=== PATIENT | female | born 1970 | race Caucasian/White ===

== ENCOUNTER 2021-12-25 18:43 | Emergency (ER) | payer OTHER, SELFPAY ==
--- NOTE | ~2021-12-25 | US_ITS ---
EXAMINATION: US VENOUS WITH DOPPLER UPPER EXTREMITY, RIGHT CLINICAL INFORMATION: Ecchymosis and pain COMPARISON: None TECHNIQUE: Ultrasound of the upper extremity is performed using compression sonography and color and pulse Doppler flow with assessment of augmentation of flow. There is also imaging and Doppler assessment of the jugular and subclavian veins. Spectral analysis with color-flow imaging is performed. FINDINGS: Respiratory variation, normal compression, and augmented flow are noted throughout the upper extremity including the axillary, brachial, cubital, and radial and ulnar veins. There is normal flow in the internal jugular and subclavian veins. There is no visible deep or superficial thrombophlebitis. If the patient's symptoms progress, a followup ultrasound in 5 -7 days might be of value to exclude proximal propagation from a nonvisualized distal arm vein. US/US venous duplex UE RT IMPRESSION: No DVT demonstrated in the right upper extremity
[2021-12-25 18:48] VITALS: BP 138/73; PULSE 92; RESP 16; TEMP 37.3; O2SAT 98
[2021-12-25 19:48] VITALS: BMI 23.9
--- NOTE | 2021-12-25 20:01 | ED.EXTPRO ---
HPI - Extremity Problem General Chief complaint: Extremity Injury, Upper Stated complaint: R Arm Injury W/C 12/25/21 Time Seen by Provider: 12/25/21 19:55 Source: patient Mode of arrival: ambulatory History of Present Illness HPI Narrative: 51-year-old female with no significant past medical history presenting to the ED complaining in a palmar aspect of distal right forearm/wrist spontaneous swelling/ecchymosis s/p having hands in ice box at work. Denies trauma/injury. Reports mild pain. Patient applied compression dressing and ice [employer]. Denies SOB, taking anticoagulation or prior DVT MD Complaint: extremity pain and extremity swelling Onset (ago): hour(s) Related Data Allergies Allergy/AdvReac Type Severity Reaction Status Date / Time sumatriptan [From IMITREX] Allergy Intermediate NUMBNESS Verified 12/25/21 19:47 amoxicillin [AMOXICILLIN] Allergy Mild MIGRAINE Verified 12/25/21 19:47 Review of Systems Review of Systems: Constitutional: No Fever, No Chills ENT/Mouth: No Ear Pain, No sore throat, No Rhinorrhea, No Swallowing Difficulty Cardiovascular: No Chest Pain, No SOB Respiratory: No Cough, No Sputum Gastrointestinal: No Nausea, No Vomiting, No Diarrhea, No Constipation, No Abdominal pain Musculoskeletal: No joint pain, No Myalgias, + Joint Swelling Skin: + Skin discoloration, No rash Neuro: No Weakness, No Numbness, No Paresthesias Yes all other systems are reviewed and are negative [facility] Past Medical History Attestation statement: The following information was validated with the patient. Physical Exam Vital Signs: Vital Signs: Last Vital Signs Temp 99.2 F 12/25/21 18:48 Pulse 92 12/25/21 18:48 Resp 16 12/25/21 18:48 BP 138/73 12/25/21 18:48 Pulse Ox 98 12/25/21 18:48 BMI result Body Mass Index 23.9 Const: General: cooperative, healthy appearing and no acute distress Orientation/consciousness: patient oriented x3 Limitations: no limitations HEENT: Head: Yes normal to inspection and Yes atraumatic Ears: hearing grossly normal bilaterally General nose exam: Normal external nose present Face and sinus: Yes normal facial exam Eyes: General: appearance normal, both eyes and all related structures EOM: EOMs intact bilaterally Neck: Neck: Yes normal visual inspection and Yes no meningeal signs Resp: Effort & Inspection: normal respiratory effort and no respiratory distress Cardio: Rate: regular rate Heart sounds: S1 normal heart sound present and S2 normal heart sound present Peripheral pulses: radial pulses present and ulnar radial pulses present Skin: Rashes: no rashes Wounds: no wounds Neuro: General: patient oriented x3, tone normal, moves all extremities and no meningeal signs Gait exam (Neuro): Normal gait present Extrem: Other: Right distal forearm/wrist palmar aspect with noted ecchymosis and mild swelling. Mildly tender to palpation. Neurovascularly intact. Full range of motion intact. No snuffbox tenderness. Course Course Course Narrative: -2099--ED care transferred to [facility] pending ultrasound results and anticipated discharge home MDM - Extremity (Nontraumatic) MDM Narrative Medical decision making narrative: 51-year-old female with no significant past medical history presenting to the ED complaining in a palmar aspect of distal right forearm/wrist spontaneous swelling/ecchymosis s/p having hands in ice box at work. On exam vital signs stable, NAD/nontoxic, physical exam as above. Concern for superficial thrombophlebitis/vessel rupture vs DVT. Low concern for fracture/sprain/dislocation. No evidence of infection Plan: Venous duplex ultrasound Differential Diagnosis Differential diagnosis: Likely superficial thrombophlebitis and deep venous thrombosis of upper extremity Medical Records Attestation: I reviewed the patient's medical records. Lab Data Attestation: I reviewed the patient's lab results. Discharge Plan Discharge Clinical Impression: Superficial thrombophlebitis Patient Disposition: Still a Patient Instructions: Superficial Thrombophlebitis (ED) Additional Instructions: Ice. Elevate. Take Tylenol as needed for pain. Apply Carl wrap for compression. Please follow-up with her doctor. If symptoms persist or worsen, you have fever, shortness of breath, area begins to look infected please return to the emergency department Referrals: Dayana Toth MD [Primary Care Provider] - 5 days
[2021-12-26 00:29] VITALS: BP 140/70; PULSE 64; RESP 16; TEMP 36.1; O2SAT 99
--- NOTE | 2021-12-26 00:31 | PC.NURSE ---
pt a&o, no sob or chest pain. Carl wrap applied to right wrist. positive cms and all digits able to move. Reviewed discharge instructions with pt. Pt verbalized understanding.
== END 2021-12-26 00:33 | disposition home or self-care (01) ==
PROVIDERS: Emergency Provider Emergency Medicine Emergency Medical Services; PCP Internal Medicine
DX: I80.8 Phlebitis and thrombophlebitis of other sites (principal); R60.0 Localized edema
CPT/HCPCS: 93971; 99284

== ENCOUNTER 2024-08-19 10:11 | Emergency (ER) | payer SELFPAY ==
--- NOTE | ~2024-08-19 | XR_ITS ---
EXAMINATION: XR CHEST CLINICAL INFORMATION: cough, fever COMPARISON: 03/12/2017. TECHNIQUE: 2 views of the chest were obtained. FINDINGS: The cardiac, hilar, and mediastinal contours are normal. The lungs are clear bilaterally. There is no pneumothorax or pleural effusion. There is no focal osseous or soft tissue abnormality. There are cholecystectomy clips noted. XR/XR chest 2V IMPRESSION: Normal chest. Electronically signed by: Shorty Allen MD 08/19/2024 11:56 AM RELL
[2024-08-19 10:32] VITALS: BP 169/96; PULSE 104; RESP 18; TEMP 37; O2SAT 99; BMI 25.3
--- NOTE | 2024-08-19 10:32 | ED.FEVER ---
HPI - Fever General Chief Complaint: Upper Respiratory Symptoms Stated Complaint: Fever, diarrhea Time Seen by Provider: 08/19/24 12:13 Source: patient Mode of arrival: ambulatory Limitations: no limitations History of Present Illness ED Provider: Sarah Lucas PA-C HPI Narrative: 54-year-old female presents to the ER for evaluation of 5 days of intermittent low-grade fevers, highest temperature was 100.9 degrees, productive cough, chest congestion, body aches and generalized malaise. She has had diarrhea x1 with some nausea but no vomiting or abdominal pain. No known sick contacts. No chest pain, shortness of breath or difficulty breathing. She is not vaccinated for the flu. MD elicited complaint: fever and malaise Onset (ago): day(s) Exacerbating factors: at night Relieving factors: nothing Associated symptoms: myalgias, headache, nasal congestion, cough and diarrhea Treatments prior to arrival fever: none Related Data Allergies Allergy/AdvReac Type Severity Reaction Status Date / Time sumatriptan [From IMITREX] Allergy Intermediate NUMBNESS Verified 08/19/24 10:34 amoxicillin [AMOXICILLIN] Allergy Mild MIGRAINE Verified 08/19/24 10:34 Review of Systems Review of Systems: Yes all other systems are reviewed and are negative PMFSH Social History Social History Advance Directives: No Advance Directives Information Provided: Yes Physical Exam Vital Signs: Vital Signs: Last Vital Signs Temp 98.6 F 08/19/24 12:28 Pulse 104 H 08/19/24 12:28 Resp 18 08/19/24 12:28 BP 169/96 H 08/19/24 12:28 Pulse Ox 99 08/19/24 12:28 O2 Del Method Room Air 08/19/24 12:28 BMI result Body Mass Index 25.3 Appearance: Alert. Oriented X3. No acute distress. Head: normocephalic, atraumatic. Eyes: Pupils equal, round and reactive to light. ENT: Pharynx normal. No tonsillar swelling or exudate. Neck: Normal inspection. Neck supple. CVS: Normal heart rate and rhythm. Pulses normal. Respiratory: No respiratory distress. Breath sounds normal. Abdomen: Soft and nontender. +BS x4 Skin: Skin warm and dry. Normal skin color. Normal skin turgor. No rashes. Extremities: No lower extremity edema. No joint swelling. Neuro/psych: Oriented X 3. Grossly normal. Normal speech and cognition. Course Course Course Narrative: This is a Rapid Medical Examination (RME) performed by Sarah Lucas PA-C in triage. Full HPI, ROS, assessment and treatment plan per primary provider in the Main ED. 54 yo female with history of migraines who presents to the ER for evaluation of low grade fevers, productive cough, diarrhea x1, poor PO intake for the last 5 days. HR 100s in triage, nontoxic appearing. Lungs CTAB. Plan: Viral swab, CXR Medical Decision Making Medical Decision Making MDM Narrative: 54-year-old female presents to the ER for evaluation of 5 days of fevers, cough, congestion, diarrhea,, malaise. Vital signs are stable in triage. Physical exam is unremarkable. Chest x-ray today shows no evidence of pneumonia. She was found to be influenza A positive. She is not vaccinated. She is 5 days with symptoms, not a candidate for Tamiflu treatment, also would not want to prescribe this given her diarrhea. At this time she is stable for discharge home with supportive care. All questions answered as well as return precautions. Differential Diagnosis Differential Diagnoses: The differential diagnosis associated with the presentation includes strep, covid, flu, rsv, other viral syndrome, bronchitis, pneumonia Lab Data [facility] Lab Attestation statement: I reviewed the patient's lab results. Labs: Lab Results 08/19/24 Range/Units 11:02 Influenza Type A (PCR) POSITIVE A (Negative) Influenza Type B (PCR) NEGATIVE (Negative) RSV RNA Qual (PCR) NEGATIVE (Negative) SARS-CoV-2 RNA (RT-PCR) NEGATIVE (Negative) Independent Interpretation I performed an independent interpretation of an: Plain X-Ray Interpretation: No focal infiltrate or effusion Radiology Impression Discussion of test interpretation with radiology: I have reviewed the radiologist's reading. Radiologist Impression: XR/XR chest 2V IMPRESSION: Normal chest. External Record Review External record reviewed: Outpatient record, Prior outpatient labs and Prior outpatient radiology Prescription Management I considered prescription management with: Antiviral and Antibiotic Critical Care Time Critical Care Time Critical Care Time: No Discharge Plan Discharge Clinical Impression: Influenza Patient Disposition: Home, Self-Care Instructions: Influenza (DC) Additional Instructions: You were found to be Influenza A POSITIVE today. Your chest x-ray and oxygen levels were normal. Rest. Drink plenty of fluids. Do not go out in public while you are not feeling well. Take over the counter cold/flu medications as needed for your symptoms. Take Tylenol and/or Motrin as needed for fevers and body aches. If you develop new or worsening symptoms call 911 or come back to the ER for further evaluation. Stand Alone Forms: Work/School Release Interventions: ED Discharge Assessment Last Done: 08/19/24 12:28 Discharge Date/Time: 08/19/24 12:29 Print Language: [place]
[2024-08-19 11:50] LABS: Influenza A PCR POSITIVE (Negative); Influenza B PCR NEGATIVE (Negative); Resp Syncy Virus RNA Qual PCR NEGATIVE (Negative); SARS COV2 PCR INHOUSE NEGATIVE (Negative)
[2024-08-19 12:28] VITALS: BP 169/96; PULSE 104; RESP 18; TEMP 37; O2SAT 99
== END 2024-08-19 12:29 | disposition home or self-care (01) ==
PROVIDERS: Physician Assistant; Emergency Provider Emergency Medicine
DX: J10.1 Influenza due to other identified influenza virus with other respiratory manifestations (principal); R50.9 Fever, unspecified; M79.10 Myalgia, unspecified site; R05.9 Cough, unspecified; R09.89 Other specified symptoms and signs involving the circulatory and respiratory systems; R19.7 Diarrhea, unspecified; R11.2 Nausea with vomiting, unspecified; Z03.818 Encounter for observation for suspected exposure to other biological agents ruled out
CPT/HCPCS: 0241U; 71046; 99282; 99283

== ENCOUNTER → 2024-08-19 10:34 | Outpatient (BNV) | payer OTHER, SELFPAY | PROVIDERS: PCP Pediatrics; Visit Provider Radiology Diagnostic Radiology | DX: R05.9 Cough, unspecified (principal); R50.9 Fever, unspecified | CPT/HCPCS: 71046 ==